=== PATIENT | female | born 1985 | race Two or more races ===

== ENCOUNTER 2017-06-23 13:40 | Emergency (ER) | payer MEDICAID ==
[~2017-06-23] VITALS: Ht 154.9 cm; Wt 60.0 kg
[~2017-06-23 13:40] MED LIST: Z.0.NO CURRENT MEDS
[2017-06-23 13:49] VITALS: BP 138/77; PULSE 74; RESP 16; TEMP 98.3; O2SAT 99
--- NOTE | 2017-06-23 14:36 | PD ---
HPI Chief Complaint: Skin Problem Time Seen by Provider: 14:22 Travel History International Travel<30 days: No Contact w/Intl Traveler<30days: No Traveled to known affect area: No History of Present Illness HPI 31 -year-old female here with multiple insect bites to her upper extremities and chest. She denies fever or chills. She reports she just moved into a new place and is uncertain this may be bed bugs. Symptom severity is mild. No aggravating or alleviating factors. PFSH Past Medical History Medical History: Denies Significant Hx ?: Not LMP: 05/22/17 Past Surgical History Surgical History: No Previous Surgery Social History Alcohol Use: Yes (DENIES) Tobacco Use: Yes (DENIES) Substance Use: No (DENIES) Allergies-Medications (Allergen,Severity, Reaction): Coded Allergies: No Known Allergies (Verified , 12/30/12) Reported Meds & Prescriptions Reported Meds & Active Scripts Active No Active Prescriptions or Reported Medications Review of Systems Except as stated in HPI: all other systems reviewed are Neg Physical Exam Narrative GENERAL: Alert, well-appearing female in no distress. SKIN: Warm and dry. Numerous insect bites to upper extremities and chest. HEAD: Normocephalic. EYES: No injection or drainage. NECK: Supple, trachea midline. No JVD or lymphadenopathy. CARDIOVASCULAR: Regular rate and rhythm without murmurs, gallops, or rubs. RESPIRATORY: Breath sounds equal bilaterally. No accessory muscle use. MUSCULOSKELETAL: No cyanosis, or edema. Data Data Last Documented VS Vital Signs Date Time Temp Pulse Resp B/P (MAP) Pulse Ox O2 Delivery O2 Flow Rate FiO2 06/23/17 13:49 98.3 74 16 138/77 (97) 99 MDM Medical Decision Making Medical Screen Exam Complete: Yes Emergency Medical Condition: Yes Differential Diagnosis Insect bite, abscess, cellulitis Narrative Course 31-year-old male here with multiple insect bites to her upper extremities. She is no evidence of infection. Diagnosis Primary Impression: Insect bites Qualified Codes: W57.XXXA - Bitten or stung by nonvenomous insect and other nonvenomous arthropods, initial encounter Referrals: [facility] No Active Prescriptions or Reported Meds Disposition: 01 DISCHARGE HOME Condition: Stable Carey Champagne Jun 23, 2017 14:36
== END 2017-06-23 14:59 | disposition home or self-care (01) ==
LOC: PHEFT 13:40
DX: S40.862A Insect bite (nonvenomous) of left upper arm, initial encounter (principal); S40.861A Insect bite (nonvenomous) of right upper arm, initial encounter; W57.XXXA Bitten or stung by nonvenomous insect and other nonvenomous arthropods, initial encounter; Z72.0 Tobacco use
CPT/HCPCS: 99281